=== PATIENT | female | born 1965 | race Caucasian/White ===

== ENCOUNTER → 2019-03-06 07:46 | Outpatient (CLI) | payer SELFPAY ==
--- NOTE | 2019-03-06 07:57 | CT_ITS ---
PROCEDURE: CT HEART W CALCIUM SCORE CLINICAL HISTORY: SCREENING COMPARISON: No exams were available for comparison TECHNIQUE: The Axial images obtained with sagittal and coronal reformats. All CT scans at the facility use one or more dose reduction, viz: automated exposure control, ma/kV adjustment per patient size (including targeted exams where dose is matched to indication, i.e. head), or iterative reconstruction technique. FINDINGS: The coronary artery calcium score is 0 indicating very low cardiovascular disease risk. Heart size is normal. Incidental note is made of a 2 cm soft tissue density along the superior aspect of the body of the pancreas possibly related to small lymph node or even partial volume averaging from an ectatic splenic artery. Consider dedicated CT of the pancreas with three-phase imaging without and with contrast for further evaluation for confirmation. IMPRESSION: Very low cardiovascular disease risk with coronary artery calcium score of 0. Asymmetric soft tissue density along the superior aspect of the body of the pancreas which could be due to a lymph node or partial volume averaging artifact from a tortuous splenic artery. Suggest CT of the pancreas with three-phase imaging without and with contrast for confirmation Dictated by: Patrick Fitzgerald MD 03/07/2019 18:29 Electronically signed by Patrick Fitzgerald MD in [place] 03/07/2019 18:29
== END ==
PROVIDERS: Visit Provider Internal Medicine Cardiovascular Disease
DX: Z13.6 Encounter for screening for cardiovascular disorders (principal)
CPT/HCPCS: 75571